=== PATIENT | male | born 1980 | race Two or more races ===

== ENCOUNTER 2020-09-07 22:22 | Emergency (ER) | payer OTHER ==
[~2020-09-07] VITALS: Ht 172.7 cm; Wt 82.7 kg
--- NOTE | 2020-09-07 23:31 | NUR ---
pt to room from lobby
[2020-09-08] MEDS ORDERED: METHOCARBAMOL 750 MG TABLET PO ONE (00:30)
[2020-09-08 01:10] LABS: MICROSCOPIC NOT IND
[2020-09-08] MEDS ORDERED: METHOCARBAMOL 750 MG TABLET ONE (01:26)
[2020-09-08] MEDS ORDERED: HYDROcodone/APAP 5/325 TABLET ONE (01:26)
[2020-09-08] MEDS ORDERED: HYDROcodone/APAP 5/325 TABLET PO ONE (01:30)
[2020-09-08 01:36] VITALS: BP 120/78
== END 2020-09-08 01:46 | disposition home or self-care (01) ==
LOC: ED 09-08 00:26
DX: S39.012A Strain of muscle, fascia and tendon of lower back, initial encounter (principal); M54.2 Cervicalgia; R51.9 Headache, unspecified; V49.49XA Driver injured in collision with other motor vehicles in traffic accident, initial encounter; Y93.89 Activity, other specified; Y92.488 Other paved roadways as the place of occurrence of the external cause; Y99.8 Other external cause status
CPT/HCPCS: 70450; 72110; 72125; 81003; 99285